=== PATIENT | female | born 1945 | race Caucasian/White ===

== ENCOUNTER 2019-01-09 08:11 | Day surgery (SDC) | payer MEDICARE ==
[~2019-01-09] VITALS: Ht 157.5 cm; Wt 85.8 kg
[~2019-01-09 08:11] MED LIST: ALLO100T; ASPI81TA85 PO; CARV6.25; DONE5TAB82; GABA-843; LEVO100T5; LIDOCAINE 2% INJ 100 MG/5 ML SDV (FOR ANES.) As Ordered ONE; LOSA100T50; LR 1,000 ML IV ONE; MAGN1CAP PO; METR-265; MIDAZOLAM INJ 2 MG/2 ML VIAL (J2250) As Ordered ONE; NOVOINJ2; PARO20TA3; PROPOFOL 200 MG/20 ML VIAL As Ordered ONE; SIMV20TA2; TRAZ-160; ceFAZolin SOD 1 GM in D5W MINI-BAG PLUS 50 ML IV ONE; fentaNYL 100 MCG/2 ML INJECTION (J3010) As Ordered ONE
[2019-01-09] MEDS ORDERED: LIDOCAINE 1% SDV INJ 30 ML VIAL As Ordered ONE (09:13)
[2019-01-09] MEDS ORDERED: POLYSPORIN TOPICAL OINTMENT 15GM As Ordered ONE (09:16)
[2019-01-09] MEDS ORDERED: PHENYLephrine HCL 500 MCG/5 ML (100MCG/ML) SYRINGE (J2370) As Ordered ONE (09:49)
[2019-01-09] MEDS ORDERED: ONDANSETRON 4MG/2ML VIAL (J2405) As Ordered ONE (10:16)
[2019-01-09] MEDS ORDERED: MUPIROCIN 2% OINT 22 GM TUBE As Ordered ONE (10:19)
--- NOTE | 2019-01-09 11:17 | RO ---
DATE OF OPERATION: 01/09/2019 PREOPERATIVE DIAGNOSIS: Pacemaker battery depletion. POSTOPERATIVE DIAGNOSIS: Pacemaker battery depletion. FINDINGS: Pacemaker battery depletion. PROCEDURE PERFORMED: Explantation of old dual-chamber pacemaker pulse generator (Biotronik) and implantation of a new dual-chamber pacemaker pulse generator (Medtronic). Insertion of a medium-size TYRX antimicrobial envelope. SURGEON: Kam Bowen MD TRANSPLANT NURSE PRACTITIONER: None. ANESTHESIA: Lidocaine 1% local and monitored anesthetic care. SPECIMENS: Old Biotronik dual-chamber pacemaker pulse generator. ESTIMATED BLOOD LOSS: Less than 5 mL. No blood products replaced. No drains. No complications. PROCEDURE DESCRIPTION: The patient was prepped and draped over the left pectoral region. 3M Ioban film was applied. Lidocaine 1% was used for local anesthetic. An incision was made over the existing pacemaker scar using a PEAK PlasmaBlade. The PEAK PlasmaBlade was then used to dissect down to and through the anterior capsule overlying the pacemaker pulse generator. The pacemaker pulse generator was then removed from the pocket. I then freed up some of the adhesions at the floor of the pacemaker pocket using the PEAK PlasmaBlade. Using blunt dissection using two fingers, I expanded the caudal aspect of the pacemaker pocket to accommodate the new pacemaker pulse generator. The internal pins were removed from the existing pacemaker pulse generator after loosening the set screws. The chronic atrial end leads were tested and found to be satisfactory. Next, I took a medium-size TYRX antimicrobial envelope and cut it into four pieces, which were placed into the floor of the pacemaker pocket. The internal pins of the atrial anterior leads were then plugged into the respective ports in the header of the new pacemaker pulse generator and each one secured by tightening the set screws with the hex screwdriver. The excess lead material was then coiled underneath the pacemaker pulse generator and placed along with the pacemaker pulse generator into the pacemaker pocket with the excess material below and the pacemaker pulse generator on top. The deep layer was closed using individual sutures consisting of 2-0 Vicryl. The skin was closed using al. The patient tolerated the procedure well without any immediate complications. The pacemaker pulse generator that was removed was a Biotronik Cylos DR pacemaker, product number [id number] with serial number [id number], originally implanted 11/06/2009. The new pacemaker pulse generator implanted was a Medtronic Ofelia with model number W1DR01 with serial number [id number]. The existing right atrial lead was a BiotroniPlayMob model 350-973 with serial number [id number] originally implanted 11/06/2009. Testing in the operating room for the right atrial lead in bipolar configuration showed capture threshold of 0.875 volts at 0.5 ms with lead impedance of 532 ohms and P wave amplitude of 1.4 mV. The existing right ventricle lead was a Biotronik model 436-366 with serial number [id number] originally implanted 11/06/2009. Testing in the operating room of the chronic right ventricle lead in bipolar configuration showed capture threshold of 0.5 volts at 0.4 ms with R lead impedance of 703 ohms and R wave amplitude of 5.1 mV.
[2019-01-09 11:20] VITALS: BP 178/76
== END 2019-01-09 11:36 | disposition home or self-care (01) ==
LOC: M SDC 08:11
PROVIDERS: ATTEND Internal Medicine Cardiovascular Disease
DX: I49.5 Sick sinus syndrome (principal); Z45.010 Encounter for checking and testing of cardiac pacemaker pulse generator [battery]; I10 Essential (primary) hypertension; E11.9 Type 2 diabetes mellitus without complications; I25.10 Atherosclerotic heart disease of native coronary artery without angina pectoris; M10.9 Gout, unspecified; E78.00 Pure hypercholesterolemia, unspecified; E66.9 Obesity, unspecified; Z86.73 Personal history of transient ischemic attack (TIA), and cerebral infarction without residual deficits; I25.2 Old myocardial infarction; Z79.899 Other long term (current) drug therapy; Z79.82 Long term (current) use of aspirin; Z79.4 Long term (current) use of insulin; F03.90 Unspecified dementia, unspecified severity, without behavioral disturbance, psychotic disturbance, mood disturbance, and anxiety
CPT/HCPCS: 33228; C1785; J0690; J2370; J2405; J3010

== ENCOUNTER → 2019-01-15 | Outpatient (REF) | payer MEDICARE ==
[~2019-01-15] MED LIST changes: -LIDOCAINE 2% INJ 100 MG/5 ML SDV (FOR ANES.) As Ordered ONE; -LR 1,000 ML IV ONE; -MIDAZOLAM INJ 2 MG/2 ML VIAL (J2250) As Ordered ONE; -PROPOFOL 200 MG/20 ML VIAL As Ordered ONE; -TRAZ-160; +TRAZ-252; -ceFAZolin SOD 1 GM in D5W MINI-BAG PLUS 50 ML IV ONE; -fentaNYL 100 MCG/2 ML INJECTION (J3010) As Ordered ONE
[2019-01-15 13:44] LABS: CHOLESTEROL RISK RATIO 3.3 (<5)
== END ==
LOC: M LABNEURO 08:47
PROVIDERS: ATTEND Internal Medicine Cardiovascular Disease
DX: E78.00 Pure hypercholesterolemia, unspecified (principal)

== ENCOUNTER → 2019-01-15 | Outpatient (REF) | payer MEDICARE ==
[2019-01-15 13:49] LABS: THYROID STIMULATING HORMONE 4.41 uIU/ML (0.358-3.740)
[2019-01-15 13:52] LABS: FOLATE 8.1 NG/ML
== END ==
LOC: M LABNEURO 08:44
PROVIDERS: ATTEND Psychiatry & Neurology Neurology
DX: E53.8 Deficiency of other specified B group vitamins (principal); E51.9 Thiamine deficiency, unspecified; E03.9 Hypothyroidism, unspecified; E78.00 Pure hypercholesterolemia, unspecified

== ENCOUNTER → 2019-01-28 | Outpatient (CLI) | payer MEDICARE ==
--- NOTE | 2019-01-28 19:26 | REP ---
CT brain without contrast: History: Alzheimer's disease with late onset. Normal pressure hydrocephalus. Comparison head CT study May 27, 2015. CT findings: There is an old periventricular infarct in the right frontal lobe unchanged. There is diffuse cerebral atrophy. There is concordant ventricular enlargement mild in degree. Fairly heavy vascular calcification is visible in the distal carotid arteries bilaterally. There is no evidence of hemorrhage, mass, extra-axial fluid collection or midline shift. 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 Diffuse atrophy and vascular calcification. No acute intracranial abnormality. Electronically Signed by Derick Grayson MD 01/29/2019 07:56 A
== END ==
LOC: M RAD 15:41
PROVIDERS: ATTEND Psychiatry & Neurology Neurology
DX: G30.1 Alzheimer's disease with late onset (principal); G91.2 (Idiopathic) normal pressure hydrocephalus

== ENCOUNTER → 2019-09-04 | Outpatient (REF) | payer MEDICARE ==
[~2019-09-04] MED LIST changes: -SIMV20TA2; +SIMV20TA22
== END ==
LOC: M LAB REF 16:26
PROVIDERS: ATTEND Internal Medicine
DX: E11.9 Type 2 diabetes mellitus without complications (principal); R23.1 Pallor; G30.1 Alzheimer's disease with late onset

== ENCOUNTER → 2021-08-11 | Outpatient (REF) | payer MEDICARE ==
[~2021-08-11] MED LIST changes: -ASPI81TA85 PO; +ASPI81TA86 PO; +GABA-282; -GABA-843
[2021-08-11 16:41] LABS: APPEARANCE, URINE CLEAR (CLEAR); BACTERIA, URINE AUTO NEGATIVE (NEGATIVE); BILIRUBIN, URINE AUTO NEGATIVE (NEGATIVE); BLOOD, URINE BLOOD 1+ (NEGATIVE); COLOR, URINE STRAW (YELLOW); GLUCOSE, URINE (UA) AUTO 3+ mg/dL (NEGATIVE); KETONE, URINE AUTO NEGATIVE (NEGATIVE); LEUKOCYTE ESTERASE, URINE AUTO TRACE (NEGATIVE); NITRITE, URINE AUTO NEGATIVE (NEGATIVE); PROTEIN, URINE AUTO NEGATIVE (NEGATIVE); RBC, URINE AUTO 2 /HPF (0-3); SPECIFIC GRAVITY URINE AUTO 1.014 (1.002-1.035); SQUAMOUS EPITHELIAL CELL UR AU 0 /HPF (0-6); UROBILINOGEN, URINE AUTO 0.2 mg/dL (0.0-2.0); WBC, URINE AUTO 23 /HPF (0-3)
== END ==
LOC: M LAB REF 16:17
PROVIDERS: ATTEND Internal Medicine
DX: R32 Unspecified urinary incontinence (principal)

== ENCOUNTER → 2021-12-29 | Outpatient (CLI) | payer MEDICARE ==
[~2021-12-29] MED LIST changes: +LOSA100T45; -LOSA100T50
== END ==
LOC: M WUC 14:58
PROVIDERS: ATTEND Internal Medicine
DX: R05.8 Other specified cough (principal)

== ENCOUNTER → 2022-06-05 | Outpatient (CLI) | payer MEDICARE | LOC: M WHC 10:23 | PROVIDERS: ATTEND Physician Assistant | DX: I65.23 Occlusion and stenosis of bilateral carotid arteries (principal) ==

== ENCOUNTER → 2022-12-26 | Outpatient (REF) | payer MEDICARE ==
[~2022-12-26] MED LIST changes: -LOSA100T45; +LOSA100T46
== END ==
LOC: M LAB REF 16:21
PROVIDERS: ATTEND Internal Medicine
DX: E31.9 Polyglandular dysfunction, unspecified (principal); Z79.899 Other long term (current) drug therapy

== ENCOUNTER → 2023-07-13 | Outpatient (REF) | payer MEDICARE ==
[2023-07-13 17:49] LABS: APPEARANCE, URINE CLOUDY (CLEAR); BACTERIA, URINE AUTO 2+ (NEGATIVE); BILIRUBIN, URINE AUTO NEGATIVE (NEGATIVE); BLOOD, URINE BLOOD 1+ (NEGATIVE); COLOR, URINE YELLOW (YELLOW); GLUCOSE, URINE (UA) AUTO 3+ mg/dL (NEGATIVE); KETONE, URINE AUTO NEGATIVE (NEGATIVE); LEUKOCYTE ESTERASE, URINE AUTO 3+ (NEGATIVE); MUCUS, URINE SMALL (NEGATIVE); NITRITE, URINE AUTO NEGATIVE (NEGATIVE); PROTEIN, URINE AUTO NEGATIVE (NEGATIVE); RBC, URINE AUTO 38 /HPF (0-3); SPECIFIC GRAVITY URINE AUTO 1.021 (1.002-1.035); SQUAMOUS EPITHELIAL CELL UR AU 10 /HPF (0-6); WBC, URINE AUTO 36 /HPF (0-3)
== END ==
LOC: M LAB REF 16:19
PROVIDERS: ATTEND Internal Medicine
DX: N39.0 Urinary tract infection, site not specified (principal); F02.80 Dementia in other diseases classified elsewhere, unspecified severity, without behavioral disturbance, psychotic disturbance, mood disturbance, and anxiety

== ENCOUNTER → 2023-12-17 | Outpatient (REF) | payer OTHER | LOC: M LAB REF 12:24 | PROVIDERS: ATTEND Internal Medicine | DX: N39.0 Urinary tract infection, site not specified (principal) ==

== ENCOUNTER → 2024-11-14 | Outpatient (REF) | payer OTHER, MEDICAID ==
[~2024-11-14] MED LIST changes: +GABA-1172; -GABA-282
== END ==
LOC: M LAB REF 14:30
PROVIDERS: ATTEND Internal Medicine
DX: D39.10 Neoplasm of uncertain behavior of unspecified ovary (principal)